=== PATIENT | male | born 1985 | race Caucasian/White ===

== ENCOUNTER 2018-09-01 12:43 | Inpatient (IN) | payer MEDICARE, MEDICAID ==
[~2018-09-01] VITALS: Ht 182.9 cm; Wt 100.5 kg
[2018-09-01] MEDS ORDERED: HALO50VI4 IM (15:17)
[2018-09-01] MEDS ORDERED: HALO5TAB2 PO (15:17)
[2018-09-01] MEDS ORDERED: ASPI81 PO (15:17)
[2018-09-01] MEDS ORDERED: ATOR40TA28 PO (15:17)
[2018-09-01] MEDS ORDERED: ARIP5TAB8 PO (15:17)
[2018-09-01] MEDS ORDERED: ARIP10TA8 PO (15:17)
[2018-09-01] MEDS ORDERED: BENZ1TAB10 PO (15:17)
[2018-09-01] MEDS ORDERED: DIPH25 PO (15:17)
[2018-09-01] MEDS ORDERED: HALOPERIDOL 5 MG TABLET PO ONE (16:00)
[2018-09-01] MEDS ORDERED: DiphenhydrAMINE HCL 25 MG CAPSULE PO ONE (16:00)
[2018-09-01 16:10] LABS: BASOPHILS % (AUTO) 0.8 % (0.0-2.0); EOSINOPHILS % (AUTO) 1.2 % (1.0-6.0); HEMATOCRIT 43.6 % (41-53); HEMOGLOBIN 15.2 g/dL (13.5-17.5); LYMPHOCYTES # (AUTO) 2.4 K/uL (1.0-4.8); LYMPHOCYTES % (AUTO) 39.8 % (22.0-44.0); MEAN CORPUSCULAR HEMOGLOBIN 31.4 pg (26.0-34.0); MEAN CORPUSCULAR VOLUME 90 fL (80-100); MONOCYTES # (AUTO) 0.5 K/uL (0.1-1.0); MONOCYTES % (AUTO) 8.8 % (2.0-9.0); NEUTROPHILS % (AUTO) 49.4 % (40.0-70.0); PLATELET COUNT (AUTO) 215 K/uL (150-450); RED BLOOD CELL COUNT(AUTO) 4.86 MIL/uL (4.50-5.90); RED CELL DISTRIBUTION WIDTH 14.8 % (11.5-14.5)
[2018-09-01 16:14] LABS: AMPHET/METH SCREEN,URINE NEGATIVE (NEGATIVE); BARBITURATE SCREEN, URINE NEGATIVE (NEGATIVE); BENZODIAZEPINES SCREEN,URINE NEGATIVE (NEGATIVE); CANNABINOID SCREEN,URINE NEGATIVE (NEGATIVE); COCAINE SCREEN,URINE NEGATIVE (NEGATIVE); METHADONE SCREEN, URINE NEGATIVE (NEGATIVE); OPIATE SCREEN,URINE NEGATIVE (NEGATIVE); PHENCYCLIDINE SCREEN,URINE NEGATIVE (NEGATIVE)
[2018-09-01 16:15] LABS: ANION GAP 8 mmol/L (8-16); CALCIUM, TOTAL 8.9 mg/dL (8.8-10.5); CARBON DIOXIDE 29 mmol/L (22-29); CHLORIDE 104 mmol/L (98-107); CREATININE 0.83 mg/dL (0.60-1.30); GLOMERULAR FILTR. RATE CALC > 60 mL/min (>60); GLUCOSE,RANDOM 109 mg/dL (70-110); POTASSIUM 3.8 mmol/L (3.5-5.1); SODIUM SERUM 141 mmol/L (136-145); UREA NITROGEN, BLOOD 13 mg/dL (7-18)
[2018-09-01 16:20] LABS: ALANINE AMINOTRANSFERASE 101 U/L (12-78); ALBUMIN 3.8 g/dL (3.4-5.0); ALKALINE PHOSPHATASE 83 U/L (46-116); ASPARTATE AMINOTRANSFERASE 44 U/L (15-37); BILIRUBIN,TOTAL 0.3 mg/dL (0.1-1.0); TOTAL PROTEIN, SERUM 7.4 g/dL (6.4-8.2)
[2018-09-01] MEDS ORDERED: HALOPERIDOL 5 MG TABLET PO PRN (16:45)
[2018-09-01] MEDS ORDERED: LORazepam 2 MG TABLET PO PRN (16:45)
[2018-09-01 19:00] VITALS: BP 142/83
[2018-09-01] MEDS ORDERED: ACETAMINOPHEN 325 MG TABLET PO PRN (20:00)
[2018-09-01] MEDS ORDERED: DOCUSATE SODIUM 100 MG CAPSULE PO PRN (20:00)
[2018-09-01] MEDS ORDERED: LOPERAMIDE HCL 2 MG CAPSULE PO PRN (20:00)
[2018-09-01] MEDS ORDERED: PETROLATUM,WHITE 71 GM JELLY TP PRN (20:00)
[2018-09-01] MEDS ORDERED: GuaiFENesin/D-METHORPHAN [SUGAR-FREE] 200-20MG/10 ML SYRUP UDCUP PO PRN (20:00)
[2018-09-01] MEDS ORDERED: MAGNESIUM HYDROXIDE SUSPENSION 30 ML UDCUP PO PRN (20:00)
[2018-09-01] MEDS ORDERED: MAG HYDROX/AL HYDROX/SIMETH ES 30 ML SUSPENSION UDCUP PO PRN (20:00)
[2018-09-01] MEDS ORDERED: ALBUTEROL SULFATE HFA 90 MCG/PUFF 8 GM INHALER IH PRN (20:00)
[2018-09-01] MEDS ORDERED: IBUPROFEN 400 MG TABLET PO PRN (20:00)
[2018-09-01] MEDS ORDERED: ONDANSETRON HCL 4 MG TABLET PO PRN (20:00)
[2018-09-01] MEDS ORDERED: CloNIDine HCL 0.1 MG TABLET PO PRN (20:00)
[2018-09-01] MEDS ORDERED: NICOTINE 14 MG/24 HOUR PATCH TD PRN (20:00)
[2018-09-01] MEDS: ATORVASTATIN CALCIUM 40 MG TABLET PO SCH (20:24)
[2018-09-01] MEDS: BENZTROPINE MESYLATE 1 MG TABLET PO SCH (20:24)
[2018-09-01] MEDS: ZOLPIDEM TARTRATE 10 MG TABLET PO PRN (20:27)
[2018-09-01] MEDS ORDERED: ARIPiprazole 10 MG TABLET PO SCH (21:00)
[2018-09-02 07:12] LABS: BASOPHILS % (AUTO) 0.5 % (0.0-2.0); EOSINOPHILS % (AUTO) 1.4 % (1.0-6.0); LYMPHOCYTES # (AUTO) 2.1 K/uL (1.0-4.8); LYMPHOCYTES % (AUTO) 41.2 % (22.0-44.0); MEAN CORPUSCULAR HEMOGLOBIN 31.8 pg (26.0-34.0); MEAN CORPUSCULAR VOLUME 91 fL (80-100); MONOCYTES # (AUTO) 0.5 K/uL (0.1-1.0); MONOCYTES % (AUTO) 10.2 % (2.0-9.0); NEUTROPHILS # (AUTO) 2.4 K/uL (1.8-7.7); NEUTROPHILS % (AUTO) 46.7 % (40.0-70.0); PLATELET COUNT (AUTO) 189 K/uL (150-450); RED BLOOD CELL COUNT(AUTO) 4.74 MIL/uL (4.50-5.90); RED CELL DISTRIBUTION WIDTH 14.5 % (11.5-14.5)
[2018-09-02 07:48] LABS: ANION GAP 8 mmol/L (8-16); CARBON DIOXIDE 28 mmol/L (22-29); CHLORIDE 103 mmol/L (98-107); CREATININE 0.86 mg/dL (0.60-1.30); GLUCOSE,RANDOM 110 mg/dL (70-110); POTASSIUM 3.9 mmol/L (3.5-5.1); SODIUM SERUM 139 mmol/L (136-145); UREA NITROGEN, BLOOD 13 mg/dL (7-18)
[2018-09-02 07:49] LABS: ALANINE AMINOTRANSFERASE 115 U/L (12-78); ALBUMIN 3.5 g/dL (3.4-5.0); ALKALINE PHOSPHATASE 72 U/L (46-116); ASPARTATE AMINOTRANSFERASE 45 U/L (15-37); BILIRUBIN,TOTAL 0.4 mg/dL (0.1-1.0); CALCIUM, TOTAL 8.9 mg/dL (8.8-10.5); CHOL/HDL RATIO 3.1 (4.2-7.3); CHOLESTEROL 120 mg/dL (131-200); GLOMERULAR FILTR. RATE CALC > 60 mL/min (>60); HDL CHOLESTEROL 39 mg/dL (40-60); LDL CHOL (CALC.) 53 mg/dL (0-130); THYROID STIMULATING HORMONE 5.09 uIU/mL (0.36-3.74); TOTAL PROTEIN, SERUM 6.5 g/dL (6.4-8.2); TRIGLYCERIDES 141 mg/dL (15-150)
[2018-09-02] MEDS: ASPIRIN 81 MG CHEWABLE TABLET PO SCH (08:34)
[2018-09-02] MEDS: BENZTROPINE MESYLATE 1 MG TABLET PO SCH (08:34)
[2018-09-02] MEDS ORDERED: ARIPiprazole 5 MG TABLET PO SCH (09:00)
[2018-09-02 09:17] VITALS: BP 112/73
[2018-09-02 11:45] LABS: HEMOGLOBIN A1C 5.6 % (4.5-6.2)
[2018-09-02] MEDS: BENZTROPINE MESYLATE 2 MG TABLET PO SCH (16:42)
[2018-09-02] MEDS: PROPRANOLOL HCL 10 MG TABLET PO SCH (16:42)
[2018-09-02 18:23] VITALS: BP 112/69
[2018-09-02] MEDS: ARIPiprazole 15 MG TABLET PO SCH (20:26)
[2018-09-02] MEDS: ATORVASTATIN CALCIUM 40 MG TABLET PO SCH (20:26)
[2018-09-03] MEDS: PROPRANOLOL HCL 10 MG TABLET PO SCH ×2 (08:37→16:17)
[2018-09-03] MEDS: BENZTROPINE MESYLATE 2 MG TABLET PO SCH ×2 (08:38→16:16)
[2018-09-03] MEDS: ASPIRIN 81 MG CHEWABLE TABLET PO SCH (08:38)
[2018-09-03 12:53] VITALS: BP 115/90
[2018-09-03 16:49] VITALS: BP 115/76
[2018-09-03] MEDS: ATORVASTATIN CALCIUM 40 MG TABLET PO SCH (20:14)
[2018-09-03] MEDS: ARIPiprazole 15 MG TABLET PO SCH (20:14)
[2018-09-03] MEDS: ZOLPIDEM TARTRATE 10 MG TABLET PO PRN (20:18)
[2018-09-04] MEDS: BENZTROPINE MESYLATE 2 MG TABLET PO SCH ×2 (10:02→17:45)
[2018-09-04] MEDS: PROPRANOLOL HCL 10 MG TABLET PO SCH ×2 (10:02→17:45)
[2018-09-04] MEDS: ASPIRIN 81 MG CHEWABLE TABLET PO SCH (10:03)
[2018-09-04 18:03] VITALS: BP 112/69
[2018-09-04] MEDS: ARIPiprazole 15 MG TABLET PO SCH (20:24)
[2018-09-04] MEDS: ATORVASTATIN CALCIUM 40 MG TABLET PO SCH (20:24)
[2018-09-04] MEDS: TraZODone HCL 100 MG TABLET PO SCH (20:24)
[2018-09-05] MEDS: BENZTROPINE MESYLATE 2 MG TABLET PO SCH ×2 (08:38→16:23)
[2018-09-05] MEDS: PROPRANOLOL HCL 10 MG TABLET PO SCH ×2 (08:38→16:23)
[2018-09-05] MEDS: ASPIRIN 81 MG CHEWABLE TABLET PO SCH (08:38)
[2018-09-05 08:51] VITALS: BP 104/71
[2018-09-05 14:02] LABS: AMPHET/METH SCREEN,URINE NEGATIVE (NEGATIVE); BARBITURATE SCREEN, URINE NEGATIVE (NEGATIVE); BENZODIAZEPINES SCREEN,URINE NEGATIVE (NEGATIVE); CANNABINOID SCREEN,URINE NEGATIVE (NEGATIVE); COCAINE SCREEN,URINE NEGATIVE (NEGATIVE); METHADONE SCREEN, URINE NEGATIVE (NEGATIVE); OPIATE SCREEN,URINE NEGATIVE (NEGATIVE); PHENCYCLIDINE SCREEN,URINE NEGATIVE (NEGATIVE)
[2018-09-05 14:18] LABS: APPEARANCE,URINE CLEAR (CLEAR); BILIRUBIN,URINE NEGATIVE (NEGATIVE); GLUCOSE, URINE (UA) NEGATIVE (NEGATIVE); KETONES,URINE NEGATIVE (NEGATIVE); LEUKOCYTE ESTERASE ,URINE NEGATIVE (NEGATIVE); NITRATE,URINE NEGATIVE (NEGATIVE); OCCULT BLOOD,URINE NEGATIVE (NEGATIVE); PH,URINE 5.5 (5.0-8.0); PROTEIN,URINE NEGATIVE (NEGATIVE); UROBILINOGEN,URINE 0.2 mg/dL (<=1.0)
[2018-09-05] MEDS ORDERED: ARIPiprazole LAUROXIL ER SUSPENSION 882 MG/3.2 ML SYRINGE IM SCH (15:00)
[2018-09-05 16:45] VITALS: BP 141/77
[2018-09-05] MEDS: ARIPiprazole 15 MG TABLET PO SCH (20:48)
[2018-09-05] MEDS: TraZODone HCL 100 MG TABLET PO SCH (20:48)
[2018-09-05] MEDS: ATORVASTATIN CALCIUM 40 MG TABLET PO SCH (21:14)
[2018-09-06 08:30] VITALS: BP 120/70
[2018-09-06] MEDS: BENZTROPINE MESYLATE 2 MG TABLET PO SCH ×2 (08:56→16:30)
[2018-09-06] MEDS: PROPRANOLOL HCL 10 MG TABLET PO SCH ×2 (08:56→16:30)
[2018-09-06] MEDS: ASPIRIN 81 MG CHEWABLE TABLET PO SCH (08:58)
[2018-09-06 16:30] VITALS: BP 149/68
[2018-09-06] MEDS: ARIPiprazole 15 MG TABLET PO SCH (20:29)
[2018-09-06] MEDS: TraZODone HCL 100 MG TABLET PO SCH (20:29)
[2018-09-06] MEDS: ATORVASTATIN CALCIUM 40 MG TABLET PO SCH (20:29)
[2018-09-07 08:01] VITALS: BP 109/73
[2018-09-07] MEDS: BENZTROPINE MESYLATE 2 MG TABLET PO SCH ×2 (08:10→17:17)
[2018-09-07] MEDS: ASPIRIN 81 MG CHEWABLE TABLET PO SCH (08:11)
[2018-09-07] MEDS: PROPRANOLOL HCL 10 MG TABLET PO SCH ×2 (08:11→17:17)
[2018-09-07 17:21] VITALS: BP 126/67
[2018-09-07] MEDS: TraZODone HCL 100 MG TABLET PO SCH (21:07)
[2018-09-07] MEDS: ATORVASTATIN CALCIUM 40 MG TABLET PO SCH (21:07)
[2018-09-07] MEDS: ZOLPIDEM TARTRATE 10 MG TABLET PO PRN (21:07)
[2018-09-07] MEDS: ARIPiprazole 15 MG TABLET PO SCH (21:08)
[2018-09-08] MEDS: LEVOTHYROXINE SODIUM 25 MCG TABLET PO SCH (06:59)
[2018-09-08] MEDS: PROPRANOLOL HCL 10 MG TABLET PO SCH ×2 (07:59→16:28)
[2018-09-08] MEDS: BENZTROPINE MESYLATE 2 MG TABLET PO SCH ×2 (07:59→16:28)
[2018-09-08] MEDS: ASPIRIN 81 MG CHEWABLE TABLET PO SCH (08:00)
[2018-09-08 10:53] VITALS: BP 98/68
[2018-09-08 17:52] VITALS: BP 118/75
[2018-09-08] MEDS: ATORVASTATIN CALCIUM 40 MG TABLET PO SCH (20:16)
[2018-09-08] MEDS: ARIPiprazole 15 MG TABLET PO SCH (20:16)
[2018-09-08] MEDS: TraZODone HCL 100 MG TABLET PO SCH (20:17)
[2018-09-09] MEDS: LEVOTHYROXINE SODIUM 25 MCG TABLET PO SCH (06:45)
[2018-09-09] MEDS: ASPIRIN 81 MG CHEWABLE TABLET PO SCH (08:42)
[2018-09-09] MEDS: PROPRANOLOL HCL 10 MG TABLET PO SCH ×2 (08:42→16:47)
[2018-09-09] MEDS: BENZTROPINE MESYLATE 2 MG TABLET PO SCH ×2 (08:42→16:47)
[2018-09-09 09:37] VITALS: BP 118/71
[2018-09-09 16:27] VITALS: BP 115/68
[2018-09-09] MEDS: TraZODone HCL 100 MG TABLET PO SCH (20:17)
[2018-09-09] MEDS: ARIPiprazole 15 MG TABLET PO SCH (20:17)
[2018-09-09] MEDS: ATORVASTATIN CALCIUM 40 MG TABLET PO SCH (20:17)
[2018-09-10] MEDS: LEVOTHYROXINE SODIUM 25 MCG TABLET PO SCH (06:11)
[2018-09-10 08:00] VITALS: BP 108/71
[2018-09-10] MEDS: ASPIRIN 81 MG CHEWABLE TABLET PO SCH (09:01)
[2018-09-10] MEDS: BENZTROPINE MESYLATE 2 MG TABLET PO SCH ×2 (09:01→16:28)
[2018-09-10] MEDS: PROPRANOLOL HCL 10 MG TABLET PO SCH ×2 (09:02→16:28)
[2018-09-10 16:54] VITALS: BP 103/73
[2018-09-10] MEDS: TraZODone HCL 100 MG TABLET PO SCH (20:13)
[2018-09-10] MEDS: ARIPiprazole 15 MG TABLET PO SCH (20:13)
[2018-09-10] MEDS: ATORVASTATIN CALCIUM 40 MG TABLET PO SCH (20:13)
[2018-09-11] MEDS: LEVOTHYROXINE SODIUM 25 MCG TABLET PO SCH (06:36)
[2018-09-11 08:11] VITALS: BP 110/57
[2018-09-11] MEDS: BENZTROPINE MESYLATE 2 MG TABLET PO SCH (08:46)
[2018-09-11] MEDS: ASPIRIN 81 MG CHEWABLE TABLET PO SCH (08:47)
[2018-09-11] MEDS: PROPRANOLOL HCL 10 MG TABLET PO SCH (08:47)
[2018-09-11] MEDS ORDERED: BENZ2TAB10 PO (13:25)
[2018-09-11] MEDS ORDERED: PROP10TA73 PO (13:26)
[2018-09-11] MEDS ORDERED: TRAZ-220 PO (13:26)
[2018-09-11] MEDS ORDERED: LEVO25TA9 PO (13:31)
[2018-09-11] MEDS ORDERED: ARIP882S IM (13:33)
[2018-10-06] MEDS ORDERED: ARIPiprazole LAUROXIL ER SUSPENSION 882 MG/3.2 ML SYRINGE IM SCH (10:30)
== END 2018-09-11 14:45 | disposition home or self-care (01) | DRG 885 ==
LOC: EMS 12:45 → 3EX 17:56
PROVIDERS: ADMIT Psychiatry & Neurology Psychiatry; ATTEND Psychiatry & Neurology Psychiatry
DX: F20.0 Paranoid schizophrenia (principal); E03.9 Hypothyroidism, unspecified; E78.5 Hyperlipidemia, unspecified; R74.0 Nonspecific elevation of levels of transaminase and lactic acid dehydrogenase [LDH]; I25.10 Atherosclerotic heart disease of native coronary artery without angina pectoris; I51.9 Heart disease, unspecified; I25.2 Old myocardial infarction; Z59.0 Homelessness; Z95.1 Presence of aortocoronary bypass graft; Z79.899 Other long term (current) drug therapy; Z79.82 Long term (current) use of aspirin; Z98.1 Arthrodesis status
CPT/HCPCS: 80307; 83036; 84439; 84443; G0378; G0480

== ENCOUNTER 2021-01-01 06:33 | Inpatient (IN) | payer BC, MEDICAID ==
[~2021-01-01] VITALS: Ht 182.9 cm; Wt 120.2 kg
[~2021-01-01 06:33] MED LIST: ARIP10TA8 PO; ARIP882S IM; ASPI-1450 PO; ATOR40TA28 PO; BENZ2TAB10 PO; LEVO25TA9 PO; PROP10TA73 PO; TRAZ-257 PO
[2021-01-01] MEDS ORDERED: ZOLPIDEM TARTRATE 10 MG TABLET PO PRN (09:30)
[2021-01-01 12:36] VITALS: BP 136/88
[2021-01-01] MEDS ORDERED: CAMPHOR/MENTHOL/PHENOL 10 GM OINTMENT TP PRN (16:00)
[2021-01-01 16:28] VITALS: BP 116/60
[2021-01-01] MEDS: BACITRACIN 28 GM OINTMENT TP SCH (17:01)
[2021-01-01] MEDS: METOPROLOL TARTRATE 25 MG TABLET PO SCH (17:01)
[2021-01-01] MEDS: PROPRANOLOL HCL 20 MG TABLET PO SCH (17:01)
[2021-01-01 20:15] VITALS: BP 118/68
[2021-01-01] MEDS: PRAZOSIN HCL 5 MG CAPSULE PO SCH (20:15)
[2021-01-02 06:09] VITALS: BP 134/67
[2021-01-02] MEDS ORDERED: ALBUTEROL SULFATE HFA 90 MCG/PUFF 8 GM INHALER IH PRN (06:15)
[2021-01-02] MEDS ORDERED: MAG HYDROX/AL HYDROX/SIMETH ES 30 ML SUSPENSION UDCUP PO PRN (06:15)
[2021-01-02] MEDS ORDERED: ONDANSETRON HCL 4 MG TABLET PO PRN (06:15)
[2021-01-02] MEDS ORDERED: OMEPRAZOLE 20 MG CAPSULE PO PRN (06:15)
[2021-01-02] MEDS ORDERED: PETROLATUM,WHITE 28 GM JELLY TP PRN (06:15)
[2021-01-02] MEDS ORDERED: MAGNESIUM HYDROXIDE SUSPENSION 30 ML UDCUP PO PRN (06:15)
[2021-01-02] MEDS ORDERED: IBUPROFEN 600 MG TABLET PO PRN (06:15)
[2021-01-02] MEDS ORDERED: CloNIDine HCL 0.1 MG TABLET PO PRN (06:15)
[2021-01-02] MEDS ORDERED: BACITRACIN 28 GM OINTMENT TP PRN (06:15)
[2021-01-02] MEDS ORDERED: DOCUSATE SODIUM 100 MG CAPSULE PO PRN (06:15)
[2021-01-02] MEDS ORDERED: BENZOCAINE/MENTHOL LOZENGE PO PRN (06:15)
[2021-01-02] MEDS ORDERED: ACETAMINOPHEN 325 MG TABLET PO PRN (06:15)
[2021-01-02] MEDS ORDERED: LOPERAMIDE HCL 2 MG CAPSULE PO PRN (06:15)
[2021-01-02] MEDS: LEVOTHYROXINE SODIUM 25 MCG TABLET PO SCH (06:25)
[2021-01-02] MEDS: ASCORBIC ACID 500 MG TABLET PO SCH (06:43)
[2021-01-02] MEDS: ASPIRIN 81 MG CHEWABLE TABLET PO SCH (06:43)
[2021-01-02 07:51] LABS: BASOPHILS % (AUTO) 0.3 % (0.0-2.0); EOSINOPHILS % (AUTO) 1.1 % (1.0-6.0); HEMATOCRIT 48.3 % (41-53); HEMOGLOBIN 16.7 g/dL (13.5-17.5); LYMPHOCYTES # (AUTO) 1.5 K/uL (1.0-4.8); MEAN CORPUSCULAR HEMOGLOBIN 31.6 pg (26.0-34.0); MEAN CORPUSCULAR HGB CONC 34.5 G/dL (31.0-37.0); MEAN CORPUSCULAR VOLUME 91 fL (80-100); MONOCYTES # (AUTO) 0.8 K/uL (0.1-1.0); MONOCYTES % (AUTO) 15.6 % (2.0-9.0); NEUTROPHILS # (AUTO) 2.6 K/uL (1.8-7.7); PLATELET COUNT (AUTO) 208 K/uL (150-450); RED BLOOD CELL COUNT(AUTO) 5.29 MIL/uL (4.50-5.90); RED CELL DISTRIBUTION WIDTH 13.4 % (11.5-14.5)
[2021-01-02 07:54] LABS: HEMOGLOBIN A1C 5.6 % (3.8-5.6)
[2021-01-02 08:09] LABS: ALANINE AMINOTRANSFERASE 74 U/L (12-78); ALBUMIN 3.2 g/dL (3.4-5.0); ALKALINE PHOSPHATASE 55 U/L (46-116); ANION GAP 6 mmol/L (8-16); ASPARTATE AMINOTRANSFERASE 35 U/L (15-37); BILIRUBIN,TOTAL 0.3 mg/dL (0.1-1.0); CALCIUM, TOTAL 8.9 mg/dL (8.8-10.5); CARBON DIOXIDE 27 mmol/L (22-29); CHLORIDE 104 mmol/L (98-107); CHOL/HDL RATIO 5.1 (4.2-7.3); CHOLESTEROL 127 mg/dL (131-200); CREATININE 0.96 mg/dL (0.60-1.30); FREE T4 (FREE THYROXINE) 1.01 ng/dL (0.76-1.46); GLOMERULAR FILTR. RATE CALC > 60 mL/min (>60); GLUCOSE,RANDOM 133 mg/dL (70-110); HDL CHOLESTEROL 25 mg/dL (40-60); LDL CHOL (CALC.) 81 mg/dL (0-130); POTASSIUM 3.9 mmol/L (3.5-5.1); SODIUM SERUM 137 mmol/L (136-145); THYROID STIMULATING HORMONE 8.38 uIU/mL (0.36-3.74); TOTAL PROTEIN, SERUM 6.7 g/dL (6.4-8.2); TRIGLYCERIDES 104 mg/dL (15-150); UREA NITROGEN, BLOOD 10 mg/dL (7-18)
[2021-01-02] MEDS: PROPRANOLOL HCL 20 MG TABLET PO SCH ×3 (08:20→16:10)
[2021-01-02] MEDS: FAMOTIDINE 20 MG TABLET PO SCH (08:20)
[2021-01-02] MEDS: AmLODIPine BESYLATE 5 MG TABLET PO SCH (08:20)
[2021-01-02] MEDS: ATORVASTATIN CALCIUM 40 MG TABLET PO SCH (08:20)
[2021-01-02] MEDS: METOPROLOL TARTRATE 25 MG TABLET PO SCH ×2 (08:20→16:10)
[2021-01-02] MEDS: VALSARTAN 160 MG TABLET PO SCH (08:20)
[2021-01-02] MEDS: BACITRACIN 28 GM OINTMENT TP SCH ×2 (08:21→16:10)
[2021-01-02 08:31] VITALS: BP 128/88
[2021-01-02] MEDS: LORazepam 2 MG TABLET PO PRN (12:35)
[2021-01-02] MEDS: HALOPERIDOL 5 MG TABLET PO PRN (12:35)
[2021-01-02 12:50] VITALS: BP 128/81
[2021-01-02 16:33] VITALS: BP 117/61
[2021-01-02 20:10] VITALS: BP 122/68
[2021-01-02] MEDS: PRAZOSIN HCL 5 MG CAPSULE PO SCH (20:14)
[2021-01-03 00:36] VITALS: BP 117/72
[2021-01-03] MEDS: LEVOTHYROXINE SODIUM 25 MCG TABLET PO SCH (06:35)
[2021-01-03] MEDS: ASPIRIN 81 MG CHEWABLE TABLET PO SCH (06:35)
[2021-01-03] MEDS: ASCORBIC ACID 500 MG TABLET PO SCH (06:35)
[2021-01-03 09:48] VITALS: BP 115/62
[2021-01-03] MEDS: BACITRACIN 28 GM OINTMENT TP SCH ×2 (09:57→16:28)
[2021-01-03] MEDS: FAMOTIDINE 20 MG TABLET PO SCH (09:57)
[2021-01-03] MEDS: METOPROLOL TARTRATE 25 MG TABLET PO SCH ×2 (09:57→16:28)
[2021-01-03] MEDS: AmLODIPine BESYLATE 5 MG TABLET PO SCH (09:57)
[2021-01-03] MEDS: PROPRANOLOL HCL 20 MG TABLET PO SCH ×3 (09:57→16:28)
[2021-01-03] MEDS: VALSARTAN 160 MG TABLET PO SCH (09:57)
[2021-01-03] MEDS: ATORVASTATIN CALCIUM 40 MG TABLET PO SCH (09:57)
[2021-01-03 12:10] VITALS: BP 128/73
[2021-01-03] MEDS: HALOPERIDOL 5 MG TABLET PO PRN (12:10)
[2021-01-03] MEDS: LORazepam 2 MG TABLET PO PRN (12:10)
[2021-01-03 16:21] VITALS: BP 117/70
[2021-01-03 20:15] VITALS: BP 140/81
[2021-01-03] MEDS: ARIPiprazole 15 MG TABLET PO SCH (20:16)
[2021-01-03] MEDS: PRAZOSIN HCL 5 MG CAPSULE PO SCH (20:16)
[2021-01-03] MEDS: TraZODone HCL 100 MG TABLET PO SCH (20:16)
[2021-01-04 00:10] VITALS: BP 102/50
[2021-01-04] MEDS: LEVOTHYROXINE SODIUM 25 MCG TABLET PO SCH (06:38)
[2021-01-04] MEDS: ASCORBIC ACID 500 MG TABLET PO SCH (06:38)
[2021-01-04] MEDS: ASPIRIN 81 MG CHEWABLE TABLET PO SCH (06:38)
[2021-01-04 08:13] LABS: APPEARANCE,URINE CLEAR (CLEAR); BILIRUBIN,URINE NEGATIVE (NEGATIVE); GLUCOSE, URINE (UA) NEGATIVE (NEGATIVE); KETONES,URINE NEGATIVE (NEGATIVE); LEUKOCYTE ESTERASE ,URINE NEGATIVE (NEGATIVE); NITRATE,URINE NEGATIVE (NEGATIVE); OCCULT BLOOD,URINE NEGATIVE (NEGATIVE); PROTEIN,URINE NEGATIVE (NEGATIVE); UROBILINOGEN,URINE 0.2 mg/dL (<=1.0)
[2021-01-04 08:19] VITALS: BP 110/68
[2021-01-04 08:19] LABS: AMPHET/METH SCREEN,URINE NEGATIVE (NEGATIVE); BARBITURATE SCREEN, URINE NEGATIVE (NEGATIVE); BENZODIAZEPINES SCREEN,URINE NEGATIVE (NEGATIVE); CANNABINOID SCREEN,URINE POSITIVE (NEGATIVE); COCAINE SCREEN,URINE NEGATIVE (NEGATIVE); METHADONE SCREEN, URINE NEGATIVE (NEGATIVE); OPIATE SCREEN,URINE NEGATIVE (NEGATIVE)
[2021-01-04 08:37] LABS: PHENCYCLIDINE SCREEN,URINE NEGATIVE (NEGATIVE)
[2021-01-04] MEDS: FAMOTIDINE 20 MG TABLET PO SCH (08:45)
[2021-01-04] MEDS: PROPRANOLOL HCL 20 MG TABLET PO SCH ×3 (08:45→16:55)
[2021-01-04] MEDS: VALSARTAN 160 MG TABLET PO SCH (08:45)
[2021-01-04] MEDS: ATORVASTATIN CALCIUM 40 MG TABLET PO SCH (08:45)
[2021-01-04] MEDS: AmLODIPine BESYLATE 5 MG TABLET PO SCH (08:45)
[2021-01-04] MEDS: METOPROLOL TARTRATE 25 MG TABLET PO SCH ×2 (08:45→16:55)
[2021-01-04] MEDS: BACITRACIN 28 GM OINTMENT TP SCH ×2 (08:46→16:56)
[2021-01-04 16:21] VITALS: BP 115/70
[2021-01-04] MEDS: LORazepam 2 MG TABLET PO PRN (16:55)
[2021-01-04] MEDS: ARIPiprazole 15 MG TABLET PO SCH (21:07)
[2021-01-04] MEDS: TraZODone HCL 100 MG TABLET PO SCH (21:08)
[2021-01-04] MEDS: PRAZOSIN HCL 5 MG CAPSULE PO SCH (21:08)
[2021-01-05] MEDS: LEVOTHYROXINE SODIUM 25 MCG TABLET PO SCH (06:14)
[2021-01-05 06:19] VITALS: BP 103/56
[2021-01-05] MEDS: ASPIRIN 81 MG CHEWABLE TABLET PO SCH (07:00)
[2021-01-05] MEDS: ASCORBIC ACID 500 MG TABLET PO SCH (07:01)
[2021-01-05 08:28] VITALS: BP 125/82
[2021-01-05] MEDS: ATORVASTATIN CALCIUM 40 MG TABLET PO SCH (08:40)
[2021-01-05] MEDS: PROPRANOLOL HCL 20 MG TABLET PO SCH ×3 (08:40→16:43)
[2021-01-05] MEDS: VALSARTAN 160 MG TABLET PO SCH (08:40)
[2021-01-05] MEDS: FAMOTIDINE 20 MG TABLET PO SCH (08:41)
[2021-01-05] MEDS: AmLODIPine BESYLATE 5 MG TABLET PO SCH (08:41)
[2021-01-05] MEDS: METOPROLOL TARTRATE 25 MG TABLET PO SCH ×2 (08:42→16:43)
[2021-01-05] MEDS: BACITRACIN 28 GM OINTMENT TP SCH ×2 (12:20→16:42)
[2021-01-05 12:25] VITALS: BP 119/75
[2021-01-05 16:14] VITALS: BP 128/79
[2021-01-05] MEDS: TraZODone HCL 100 MG TABLET PO SCH (20:43)
[2021-01-05] MEDS: LURASIDONE HCL 80 MG TABLET PO SCH (20:43)
[2021-01-05] MEDS: PRAZOSIN HCL 5 MG CAPSULE PO SCH (20:45)
[2021-01-05] MEDS: ARIPiprazole 15 MG TABLET PO SCH (20:45)
[2021-01-06 05:42] VITALS: BP 125/66
[2021-01-06] MEDS: ASPIRIN 81 MG CHEWABLE TABLET PO SCH (07:03)
[2021-01-06] MEDS: LEVOTHYROXINE SODIUM 25 MCG TABLET PO SCH (07:03)
[2021-01-06] MEDS: ASCORBIC ACID 500 MG TABLET PO SCH (07:03)
[2021-01-06] MEDS: PROPRANOLOL HCL 20 MG TABLET PO SCH ×3 (08:17→16:21)
[2021-01-06] MEDS: FAMOTIDINE 20 MG TABLET PO SCH (08:17)
[2021-01-06] MEDS: ATORVASTATIN CALCIUM 40 MG TABLET PO SCH (08:17)
[2021-01-06] MEDS: VALSARTAN 160 MG TABLET PO SCH (08:17)
[2021-01-06 08:18] LABS: COVID AG,FIA SOURCE NASOPHARYNGEAL
[2021-01-06] MEDS: AmLODIPine BESYLATE 5 MG TABLET PO SCH (08:18)
[2021-01-06] MEDS: METOPROLOL TARTRATE 25 MG TABLET PO SCH ×2 (08:18→16:21)
[2021-01-06] MEDS: BACITRACIN 28 GM OINTMENT TP SCH ×2 (08:18→16:21)
[2021-01-06 08:39] VITALS: BP 126/75
[2021-01-06 13:10] VITALS: BP 114/60
[2021-01-06 16:43] VITALS: BP 120/69
[2021-01-06 20:20] VITALS: BP 120/71
[2021-01-06] MEDS: LURASIDONE HCL 80 MG TABLET PO SCH (20:20)
[2021-01-06] MEDS: TraZODone HCL 100 MG TABLET PO SCH (20:20)
[2021-01-06] MEDS: PRAZOSIN HCL 5 MG CAPSULE PO SCH (20:20)
[2021-01-06] MEDS: ARIPiprazole 15 MG TABLET PO SCH (20:20)
[2021-01-07 00:49] VITALS: BP 107/63
[2021-01-07] MEDS: ASPIRIN 81 MG CHEWABLE TABLET PO SCH (06:26)
[2021-01-07] MEDS: LEVOTHYROXINE SODIUM 25 MCG TABLET PO SCH (06:26)
[2021-01-07] MEDS: ASCORBIC ACID 500 MG TABLET PO SCH (06:27)
[2021-01-07 08:50] VITALS: BP_SYST 110; BP_SYST 124; BP_DIAS 54; BP_DIAS 72
[2021-01-07] MEDS: BACITRACIN 28 GM OINTMENT TP SCH ×2 (08:52→16:33)
[2021-01-07] MEDS: PROPRANOLOL HCL 20 MG TABLET PO SCH ×3 (08:52→16:33)
[2021-01-07] MEDS: MULTIVITAMINS WITH MINERALS, THERAPEUTIC TABLET PO SCH (08:52)
[2021-01-07] MEDS: METOPROLOL TARTRATE 25 MG TABLET PO SCH ×2 (08:52→16:33)
[2021-01-07] MEDS: AmLODIPine BESYLATE 5 MG TABLET PO SCH (08:52)
[2021-01-07] MEDS: ATORVASTATIN CALCIUM 40 MG TABLET PO SCH (08:52)
[2021-01-07] MEDS: VALSARTAN 160 MG TABLET PO SCH (08:52)
[2021-01-07] MEDS: FAMOTIDINE 20 MG TABLET PO SCH (08:52)
[2021-01-07 12:45] VITALS: BP 116/72
[2021-01-07 16:27] VITALS: BP 127/78
[2021-01-07 20:00] VITALS: BP 138/67
[2021-01-07] MEDS: PRAZOSIN HCL 5 MG CAPSULE PO SCH (20:04)
[2021-01-07] MEDS: LURASIDONE HCL 80 MG TABLET PO SCH (20:05)
[2021-01-07] MEDS: ARIPiprazole 15 MG TABLET PO SCH (20:05)
[2021-01-07] MEDS: TraZODone HCL 100 MG TABLET PO SCH (20:05)
[2021-01-08 06:35] VITALS: BP 106/58
[2021-01-08] MEDS: LEVOTHYROXINE SODIUM 25 MCG TABLET PO SCH (07:01)
[2021-01-08] MEDS: ASCORBIC ACID 500 MG TABLET PO SCH (07:01)
[2021-01-08] MEDS: ASPIRIN 81 MG CHEWABLE TABLET PO SCH (07:01)
[2021-01-08 08:29] VITALS: BP 118/50
[2021-01-08 09:00] VITALS: BP 127/81
[2021-01-08] MEDS: AmLODIPine BESYLATE 5 MG TABLET PO SCH (09:09)
[2021-01-08] MEDS: MULTIVITAMINS WITH MINERALS, THERAPEUTIC TABLET PO SCH (09:09)
[2021-01-08] MEDS: VALSARTAN 160 MG TABLET PO SCH (09:09)
[2021-01-08] MEDS: PROPRANOLOL HCL 20 MG TABLET PO SCH ×2 (09:09→12:37)
[2021-01-08] MEDS: FAMOTIDINE 20 MG TABLET PO SCH (09:09)
[2021-01-08] MEDS: ATORVASTATIN CALCIUM 40 MG TABLET PO SCH (09:09)
[2021-01-08] MEDS: METOPROLOL TARTRATE 25 MG TABLET PO SCH (09:09)
[2021-01-08] MEDS: BACITRACIN 28 GM OINTMENT TP SCH (09:09)
[2021-01-08] MEDS ORDERED: TRAZ-257 PO (11:19)
[2021-01-08] MEDS ORDERED: ARIP15TA2 PO (11:19)
[2021-01-08] MEDS ORDERED: LURA80TA2 PO (11:20)
[2021-01-08] MEDS ORDERED: LEVO25TA9 PO (11:20)
[2021-01-08] MEDS ORDERED: ATOR40TA28 PO (11:21)
[2021-01-08] MEDS ORDERED: METO25 PO (11:21)
[2021-01-08] MEDS ORDERED: FAMO20 PO (11:21)
[2021-01-08] MEDS ORDERED: AMLO-257 PO (11:21)
[2021-01-08] MEDS ORDERED: VALS160T2 PO (11:22)
[2021-01-08] MEDS ORDERED: ASPI-1450 PO (11:22)
[2021-01-08] MEDS ORDERED: PRAZ5 PO (11:23)
[2021-01-08] MEDS ORDERED: PROP20TA18 PO (11:24)
[2021-01-08 12:37] VITALS: BP 129/73
[2021-01-08 16:29] VITALS: BP 123/66
== END 2021-01-08 17:00 | disposition home or self-care (01) | DRG 885 ==
LOC: B2S 10:21
PROVIDERS: ADMIT Psychiatry & Neurology Psychiatry; ATTEND Psychiatry & Neurology Psychiatry
DX: F20.9 Schizophrenia, unspecified (principal); F32.9 Major depressive disorder, single episode, unspecified; F41.9 Anxiety disorder, unspecified; I10 Essential (primary) hypertension; I25.2 Old myocardial infarction; E03.9 Hypothyroidism, unspecified; Z95.1 Presence of aortocoronary bypass graft; G47.00 Insomnia, unspecified; K59.00 Constipation, unspecified; F19.10 Other psychoactive substance abuse, uncomplicated; Z20.822 Contact with and (suspected) exposure to COVID-19
CPT/HCPCS: 80307; 83036; 84439; 84443; 87426